=== PATIENT | female | born 1995 | race Caucasian/White ===

== ENCOUNTER 2019-09-06 18:09 | Inpatient (IN) | payer OTHER, SELFPAY ==
[2019-09-06] MEDS ORDERED: NA CHLORIDE 0.9% 1,000 ML ONE ×2 (18:45→22:02)
[2019-09-06 19:14] LABS: Absolute Lymphocytes (CBC) 1.9 K/uL (0.7-4.9); Basophils % 0.5 % (0-1.3); Hematocrit 28.5 % (36.0-45.0); Lymphocytes % 21.5 % (15.3-44.8); MPV 7.9 fL (7.6-11.3); RBC Red Blood Cell Count 3.36 M/uL (3.86-4.86)
[2019-09-06 19:26] LABS: Potassium 3.4 mmol/L (3.5-5.1)
[2019-09-06] MEDS ORDERED: METHYLERGONOVINE 0.2MG/ML AMP IM ONE (22:01)
[2019-09-07 01:57] LABS: Hematocrit 19.5 % (36.0-45.0)
--- NOTE | 2019-09-07 02:41 | EDPHYS ---
Physician Documentation [facility] Name: Jacqueline Parks Age: 24 yrs Sex: Female : 1995 Arrival Date: 09/06/2019 Time: 18:10 Bed 14 Private MD: AMAYA Physician Yayo Verduzco HPI: 09/05 18:36 This 24 yrs old Female presents to ER via Ambulatory with complaints of Vaginal pm1 Bleeding. 18:36 The patient presents with vaginal bleeding that is heavy, with clots. Onset: The pm1 symptoms/episode began/occurred 1 month(s) ago, and became worse today. Modifying factors: The symptoms are alleviated by nothing, the symptoms are aggravated by nothing. Associated signs and symptoms: Pertinent positives: Near syncope, Pertinent negatives: diarrhea, dysuria, fever, nausea, vomiting. Severity of symptoms: in the emergency department the symptoms are actually worse. The patient is sexually active. The patient has not experienced similar symptoms in the past. [facility]. 9 weeks per ultrasound. Took pill on 08/08 and has had light bleeding until she had heavy bleeding and clots today. +Nausea and dizziness. - chest pain or shortness of breath. 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 - Social history:: Smoking status: . ROS: 18:36 Positive for vaginal bleeding, Negative for urinary symptoms, vaginal discharge. pm1 18:36 Constitutional: Negative for fever, chills, and weight loss, Cardiovascular: Negative for chest pain, palpitations, and edema, Respiratory: Negative for shortness of breath, cough, wheezing, and pleuritic chest pain, Back: Negative for injury and pain, MS/Extremity: Negative for injury and deformity, Skin: Negative for injury, rash, and discoloration. 18:36 Abdomen/GI: Positive for nausea, abdominal cramps, of the suprapubic area, Negative for vomiting, diarrhea, constipation. 18:36 : Positive for vaginal bleeding, Negative for urinary symptoms, vaginal discharge. 18:36 Neuro: Positive for near syncope. Exam: 18:36 Constitutional: This is a well developed, well nourished patient who is awake, alert, pm1 and in no acute distress. Head/Face: Normocephalic, atraumatic. Chest/axilla: Normal chest wall appearance and motion. Nontender with no deformity. No lesions are appreciated. Cardiovascular: Regular rate and rhythm with a normal S1 and S2. No gallops, murmurs, or rubs. Normal PMI, no JVD. No pulse deficits. Respiratory: Lungs have equal breath sounds bilaterally, clear to auscultation and percussion. No rales, rhonchi or wheezes noted. No increased work of breathing, no retractions or nasal flaring. Abdomen/GI: Soft, non-tender, with normal bowel sounds. No distension or tympany. No guarding or rebound. No evidence of tenderness throughout. Back: No spinal tenderness. No costovertebral tenderness. Full range of motion. 18:36 Skin: Warm, dry with normal turgor. Normal color with no rashes, no lesions, and no evidence of cellulitis. MS/ Extremity: Pulses equal, no cyanosis. Neurovascular intact. Full, normal range of motion. 18:36 : Patient with moderate amount of blood present in the restroom with clots. Minimal active bleeding in ER bed. 18:36 Neuro: Exam negative for acute changes, Orientation: is normal, Mentation: is normal, Motor: is normal, moves all fours, Sensation: is normal, no obvious gross deficits. 21:35 : Pelvic Exam: External exam: is normal, Speculum exam: mild bleeding, blood clots in pm1 vaginal vault, tissue in cervix is seen, tissue in vagina is seen, [place] hearing aid specialist chaperoned. Vital Signs: 18:13 BP 110 / 82; Pulse 137; Resp 18; Temp 98.8(TE); Pulse Ox 99% on R/A; Weight 77.11 kg tw2 (R); Height 5 ft. 5 in. (165.10 cm) (R); Pain 9/10; 19:05 BP 108 / 58; Pulse 94; Resp 18; Pulse Ox 98% ; ll1 20:00 BP 106 / 59; Pulse 87; Resp 16; Pulse Ox 100% on R/A; jb4 21:00 BP 115 / 71; Pulse 87; Resp 16; Pulse Ox 100% on R/A; jb4 21:45 BP 103 / 73; Pulse 130; Resp 16; Pulse Ox 98% on R/A; jb4 22:45 BP 105 / 52; Pulse 81; Resp 16; Pulse Ox 100% on R/A; Pain 0/10; jb4 23:53 BP 100 / 56; Pulse 91; Resp 16; Pulse Ox 100% on R/A; jb4 09/06 00:45 BP 92 / 54; Pulse 118; Resp 16; Pulse Ox 100% on R/A; jb4 01:30 BP 104 / 56; Pulse 82; Resp 16; Pulse Ox 99% on R/A; jb4 02:45 BP 107 / 56; Pulse 79; Resp 16; Pulse Ox 97% on R/A; jb4 03:45 BP 101 / 54; Pulse 76; Resp 16; Pulse Ox 98% on R/A; jb4 04:45 BP 99 / 52; Pulse 81; Resp 16; Pulse Ox 97% on R/A; jb4 05:45 BP 101 / 49; Pulse 73; Resp 16; Pulse Ox 98% on R/A; jb4 06:20 jb4 09:15 BP 116 / 63; Pulse 87; Resp 17; Temp 98.5; Pulse Ox 99% ; Pain 0/10; jr10 09/05 18:13 Body Mass Index 28.29 (77.11 kg, 165.10 cm) tw2 09/05 18:13 earlier it felt like a 10/19 but i took 800 mg motrin about an hr ago. tw2 09/06 06:20 See transfusion flow sheet for further documentation. jb4 MDM: 09/05 18:21 Patient medically screened. pm1 09/06 02:15 Counseling: I had a detailed discussion with the patient and/or guardian regarding: the pm1 historical points, exam findings, and any diagnostic results supporting the discharge/admit diagnosis, lab results, radiology results, the need for further work-up and treatment in the hospital. 02:21 Physician consultation: Immanuel Whitaker MD regarding admission, patient's condition, and pm1 will see patient L\T\D floor. would like medications started, Wants 20 units of Pitocin in her IV fluids. 02:33 Data reviewed: vital signs. Data interpreted: Pulse oximetry: on room air is 99 %. pm1 Interpretation: normal. 09/05 18:26 Order name: Quantitative Hcg; Complete Time: 19:43 pm1 09/05 18:26 Order name: Abo/rh Typing pm1 09/05 18:26 Order name: Basic Metabolic Panel; Complete Time: 19:43 pm1 09/05 18:26 Order name: CBC with Diff; Complete Time: 19:20 pm1 09/05 21:35 Order name: Misc. Lab Test pm1 09/05 21:02 Order name: US Transvaginal Ob pm1 09/05 21:36 Order name: ABO/RH no charge; Complete Time: 22:43 EDMS 09/06 00:57 Order name: Hematocrit; Complete Time: 02:14 pm1 09/06 00:57 Order name: Hemoglobin; Complete Time: 02:14 pm1 09/06 05:07 Order name: Antibody Screen EDOH 09/05 18:26 Order name: IV Saline Lock; Complete Time: 18:41 pm1 09/05 18:26 Order name: Labs collected and sent; Complete Time: 18:40 pm1 09/05 18:26 Order name: NPO; Complete Time: 18:41 pm09/05 21:01 Order name: Pelvic Exam Setup; Complete Time: 21:09 pm1 09/06 01:58 Order name: Transfuse; Complete Time: 06:52 pm1 Administered Medications: 09/05 18:40 Drug: NS 0.9% 1000 ml Route: IV; Rate: 1000 ml; Site: right antecubital; ll1 19:20 Follow up: Response: No adverse reaction; IV Status: Completed infusion; IV Intake: jb4 1000ml 21:55 Drug: NS 0.9% 1000 ml {Note: Administered by SUSAN Bradley} Route: IV; Rate: 1000 ml; jb4 Site: right antecubital; 23:00 Follow up: Response: No adverse reaction; IV Status: Completed infusion; IV Intake: jb4 1000ml 21:58 Drug: METHERgine 0.2 mg Route: IM; Site: left gluteus; jb4 23:00 Follow up: Response: No adverse reaction; Marked relief of symptoms jb4 22:31 Not Given (Patient Refused): Zofran (Ondansetron) 4 mg IVP once; over 2 minutes jb4 09/06 03:18 Drug: Pitocin 20 units Route: IV; Rate: calculated rate; Site: right antecubital; jb4 09:16 Follow up: Response: No adverse reaction; IV Status: Infusion continued upon admission jr10 06:05 Drug: Benadryl 12.5 mg Route: IVP; Site: left antecubital; jb4 06:55 Follow up: Response: No adverse reaction jb4 06:05 Drug: Tylenol 650 mg Route: PO; jb4 06:55 Follow up: Response: No adverse reaction jb4 06:05 Drug: Solu-CORTEF 50 mg Route: IVP; Site: left antecubital; jb4 06:55 Follow up: Response: No adverse reaction jb4 Disposition: 09/07/19 02:40 Hospitalization ordered by Immanuel Whitaker for Observation. Preliminary diagnosis are Complete or unspecified spontaneous with other complications - anemia, Anemia, unspecified. - [facility]. - Status is Observation. jr10 - Condition is Stable. - Problem is new. - Symptoms have improved. Addendum: 09/09/2019 11:39 Co-signature as Attending Physician, Yayo Verduzco MD I agree with the assessment and c melara plan of care. Signatures: Dispatcher [employer] [facility] Yayo Verduzco MD MD cha Ballard, Brenda, RN RN bb Claus Reynoso, WOOD ROOM SUPERVISOR WOOD ROOM SUPERVISOR pm1 Flavia Benitez RN RN tw2 David Chen RN RN jb4 Trevon Cherry RN RN ll1 Minerva Washington, SUSAN RN jr10 Corrections: (The following items were deleted from the chart) 09/05 23:38 21:35 Miscellaneous Test Lab ordered. [facility] 09/06 02:50 02:40 Hospitalization Ordered by Immanuel Whitaker MD for Observation. Preliminary bb diagnosis is Complete or unspecified spontaneous with other complications - anemiaAnemia, unspecified. Bed requested for [facility]. Status is Observation. Condition is Stable. Problem is new. Symptoms have improved. pm1 09:18 02:50 09/07/2019 02:40 Hospitalization Ordered by Immanuel Whitaker MD for Observation. jr10 Preliminary diagnosis is Complete or unspecified spontaneous with other complications - anemiaAnemia, unspecified. Bed requested for [facility]. Status is Observation. Condition is Stable. Problem is new. Symptoms have improved. bb
--- NOTE | 2019-09-07 02:41 | ER ---
Nurse's Notes [facility] Name: Jacqueline Parks Age: 24 yrs Sex: Female : 1995 Arrival Date: 09/06/2019 Time: 18:10 Bed 14 Private MD: Diagnosis: Anemia, unspecified;Complete or unspecified spontaneous with other complications-anemia Presentation: 09/05 18:13 Chief complaint: Patient states: i had a medical on August 08, i am still tw2 experiencing bleeding and now it is extreme bleeding, it is just gushing out of me, it was heavy the first night after August 08, i bled the whole time, but today at about 3pm it started with this extreme bleeding, i have soaked 5 or 6 pads since 3pm, and this pad i just put on was 10 minutes ago and i am bleeding through it everywhere. Chief complaint: Patient states: i am also feeling a little lightheaded and shaky. Coronavirus screen: Patient reports a cough. Patient denies shortness of breath or difficulty breathing. Patient denies measured and/or subjective temperature greater than 100.4F prior to today's visit. Patient denies travel on a cruise ship or to a country the [facility] currently lists as an affected area. Patient denies contact with known and/or suspected case of COVID-19. Ebola Screen: Patient denies travel to an Ebola-affected area in the 21 days before illness onset. Initial Sepsis Screen: Does the patient meet any 2 criteria? HR > 90 bpm. No. Patient's initial sepsis screen is negative. Does the patient have a suspected source of infection? No. Patient's initial sepsis screen is negative. Risk Assessment: Do you want to hurt yourself or someone else? Patient reports no desire to harm self or others. Onset of symptoms was September 06, 2019. 18:13 Method Of Arrival: Ambulatory tw2 18:13 Acuity: DEMOND 2 ss 18:19 Chief complaint: Patient states: pts states last periods was in May, and i was about tw2 9 wks , when they gave me the oral medication to have the . Triage Assessment: 18:18 General: Appears uncomfortable, Behavior is calm, cooperative, appropriate for age, tw2 crying. Pain: Complains of pain in pelvis. : Reports cramping, vaginal bleeding that is bright red, heavy flow. 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 - Social history:: Smoking status: . Screenin:24 Abuse screen: Denies threats or abuse. Nutritional screening: No deficits noted. ll1 Tuberculosis screening: No symptoms or risk factors identified. Fall Risk IV access (20 points). Gait- Weak (10 pts.). Total Ashraf Fall Scale indicates Low Risk Score (25-44 pts). Fall prevention measures have been instituted. Side Rails Up X 2 Placed close to Nursing Station Frequent Obs/Assesments occuring As available Patient and Family Educated on Fall Prevention Program and strategies. Assessment: 18:23 General: Appears in no apparent distress. Behavior is calm, cooperative. Pain: ll1 Complains of pain in pelvis. Neuro: No deficits noted. Cardiovascular: No deficits noted. GI: No deficits noted. : cristobal blood, Reports vaginal bleeding that is bright red, heavy flow. 19:00 Reassessment: Patient appears in no apparent distress at this time. Patient and/or jb4 family updated on plan of care and expected duration. Pain level reassessed. Patient is alert, oriented x 3, equal unlabored respirations, skin warm/dry/pink. Patient states feeling better. 20:00 Reassessment: Patient appears in no apparent distress at this time. Patient and/or jb4 family updated on plan of care and expected duration. Pain level reassessed. Patient is alert, oriented x 3, equal unlabored respirations, skin warm/dry/pink. 21:00 Reassessment: Patient appears in no apparent distress at this time. Patient and/or jb4 family updated on plan of care and expected duration. Pain level reassessed. Patient is alert, oriented x 3, equal unlabored respirations, skin warm/dry/pink. 21:45 Reassessment: PT reports feeling like she is going to pass out. Pt is pale and clammy, jb4 heart rate is 130 and weak. Sudden increase in vaginal bleeding noted, pt fell unconscious. Provider called to the bedside via staff assist. Pt coughing, turned to her right side, vomited once. Pt is now conscious and A\\T\\O x4. 22:19 Reassessment: Patient appears in no apparent distress at this time. Patient and/or jb4 family updated on plan of care and expected duration. Pain level reassessed. Patient is alert, oriented x 3, equal unlabored respirations, skin warm/dry/pink. PT reports feeling better, is being assisted with bedbath. 22:45 Reassessment: PT is resting in bed comfortably talking on the phone with her friend. jb4 Denies nausea, or feeling as though she is going to pass out. Reports feeling as though the bleeding has greatly decreased. Female bus info consultant is present, pt is still bleeding, noticeably less than before. Pt skin is pink, warm, and dry. Pulse has returned to within normal limits. 23:53 Reassessment: PT is still bleeding slightly. PT has had 3 new dime sized drops of blood jb4 since last being checked. Pt reports feeling better. Asked if she felt able to ambulate, reports being uncertain. Sat up in bed to 90 degrees, reports feeling "off" but not dizzy. Heart rate increased to 95 BPM. Pt is other vides sitting comfortably in bed playing on her phone. Provider notified. 09/06 00:50 Reassessment: Patient and/or family updated on plan of care and expected duration. Pain jb4 level reassessed. Patient is alert, oriented x 3, equal unlabored respirations, skin warm/dry/pink. Attempted to stand patient and ambulate. Pt monique to standing position slowly. Reported being dizzy, began to stumble and got back in bed. Pt's heart rate increased to 168 BPM, heart rate decreased to 110 once back in bed. Pt reports feeling much better and no longer feeling faint after laying back down. Provider notified, see MAR for orders. 02:00 Reassessment: Patient and/or family updated on plan of care and expected duration. Pain jb4 level reassessed. Patient is alert, oriented x 3, equal unlabored respirations, skin warm/dry/pink. PT is resting comfortably in bed. No s/s of pain or distress noted. 03:00 Reassessment: No changes from previously documented assessment. Patient and/or family jb4 updated on plan of care and expected duration. Pain level reassessed. Patient is alert, oriented x 3, equal unlabored respirations, skin warm/dry/pink. 04:00 Reassessment: Pt is resting in bed with eyes closed, respirations are even and jb4 unlabored with no s/s of pain or distress noted. IV fluids continue to infuse with ease. 05:00 Reassessment: No changes from previously documented assessment. Patient and/or family jb4 updated on plan of care and expected duration. Pain level reassessed. 06:00 Reassessment: Patient and/or family updated on plan of care and expected duration. Pain jb4 level reassessed. Patient is alert, oriented x 3, equal unlabored respirations, skin warm/dry/pink. PT is awake an alert. Sitting upright in bed. Explained that the transfusion is about to be started. Pt verbalized understanding. Denies anxiety, questions, or concerns. Breathe sounds are clear bilaterally. 06:20 Reassessment: Blood transfusion started. jb4 07:30 Reassessment: Patient appears in no apparent distress at this time. Patient and/or jr10 family updated on plan of care and expected duration. Pain level reassessed. Patient is alert, oriented x 3, equal unlabored respirations, skin warm/dry/pink. Patient states feeling better. Patient states symptoms have improved. blood continuing to transfuse at this time. Pt remains without s/s of suspected transfusion reaction. See paper documentation for vitals and additional blood transfusion documentation. Vital Signs: 09/05 18:13 BP 110 / 82; Pulse 137; Resp 18; Temp 98.8(TE); Pulse Ox 99% on R/A; Weight 77.11 kg tw2 (R); Height 5 ft. 5 in. (165.10 cm) (R); Pain 9/10; 19:05 BP 108 / 58; Pulse 94; Resp 18; Pulse Ox 98% ; ll1 20:00 BP 106 / 59; Pulse 87; Resp 16; Pulse Ox 100% on R/A; jb4 21:00 BP 115 / 71; Pulse 87; Resp 16; Pulse Ox 100% on R/A; jb4 21:45 BP 103 / 73; Pulse 130; Resp 16; Pulse Ox 98% on R/A; jb4 22:45 BP 105 / 52; Pulse 81; Resp 16; Pulse Ox 100% on R/A; Pain 0/10; jb4 23:53 BP 100 / 56; Pulse 91; Resp 16; Pulse Ox 100% on R/A; jb4 09/06 00:45 BP 92 / 54; Pulse 118; Resp 16; Pulse Ox 100% on R/A; jb4 01:30 BP 104 / 56; Pulse 82; Resp 16; Pulse Ox 99% on R/A; jb4 02:45 BP 107 / 56; Pulse 79; Resp 16; Pulse Ox 97% on R/A; jb4 03:45 BP 101 / 54; Pulse 76; Resp 16; Pulse Ox 98% on R/A; jb4 04:45 BP 99 / 52; Pulse 81; Resp 16; Pulse Ox 97% on R/A; jb4 05:45 BP 101 / 49; Pulse 73; Resp 16; Pulse Ox 98% on R/A; jb4 06:20 jb4 09:15 BP 116 / 63; Pulse 87; Resp 17; Temp 98.5; Pulse Ox 99% ; Pain 0/10; jr10 09/05 18:13 Body Mass Index 28.29 (77.11 kg, 165.10 cm) tw2 09/05 18:13 earlier it felt like a 10/19 but i took 800 mg motrin about an hr ago. tw2 09/06 06:20 See transfusion flow sheet for further documentation. 4 ED Course: 09/05 18:10 Patient arrived in ED. ag5 18:17 Triage completed. tw2 18:17 Arm band placed on. tw2 18:21 Claus Reynoso NP is PHCP. pm1 18:21 Yayo Verduzco MD is Attending Physician. pm1 18:23 Trevon Cherry, RN is Primary Nurse. ll1 18:24 Patient has correct armband on for positive identification. Bed in low position. Call ll1 light in reach. Side rails up X 1. 18:42 Inserted saline lock: 18 gauge in right antecubital area, using aseptic technique. ll1 Blood collected. 19:13 Primary Nurse role handed off by Trevon Cherry, RN jb4 19:13 David Chen, RN is Primary Nurse. 4 21:45 Assist provider with pelvic exam: Set up pelvic tray. Performed by Claus Reynoso NP mw2 Specimens sent to lab. 22:50 US Transvaginal Ob In Process Unspecified. EDMS 09/06 02:38 Immanuel Whitaker MD is Hospitalizing Provider. pm1 07:12 Primary Nurse role handed off by David Chen, SUSAN jr10 07:12 Minerva Washington, SUSAN is Primary Nurse. jr10 09:17 Patient admitted, IV remains in place. No redness/swelling at site. Pressure dressing jr10 applied. Administered Medications: 09/05 18:40 Drug: NS 0.9% 1000 ml Route: IV; Rate: 1000 ml; Site: right antecubital; ll1 19:20 Follow up: Response: No adverse reaction; IV Status: Completed infusion; IV Intake: jb4 1000ml 21:55 Drug: NS 0.9% 1000 ml {Note: Administered by SUSAN Bradley .} Route: IV; Rate: 1000 ml; jb4 Site: right antecubital; 23:00 Follow up: Response: No adverse reaction; IV Status: Completed infusion; IV Intake: jb4 1000ml 21:58 Drug: METHERgine 0.2 mg Route: IM; Site: left gluteus; jb4 23:00 Follow up: Response: No adverse reaction; Marked relief of symptoms jb4 22:31 Not Given (Patient Refused): Zofran (Ondansetron) 4 mg IVP once; over 2 minutes jb4 09/06 03:18 Drug: Pitocin 20 units Route: IV; Rate: calculated rate; Site: right antecubital; jb4 09:16 Follow up: Response: No adverse reaction; IV Status: Infusion continued upon admission jr10 06:05 Drug: Benadryl 12.5 mg Route: IVP; Site: left antecubital; jb4 06:55 Follow up: Response: No adverse reaction jb4 06:05 Drug: Tylenol 650 mg Route: PO; jb4 06:55 Follow up: Response: No adverse reaction jb4 06:05 Drug: Solu-CORTEF 50 mg Route: IVP; Site: left antecubital; jb4 06:55 Follow up: Response: No adverse reaction jb4 Intake: 09/05 19:20 IV: 1000ml; Total: 1000ml. jb4 23:00 IV: 1000ml; Total: 2000ml. jb4 Outcome: 09/06 02:40 Decision to Hospitalize by Provider. pm1 09:16 Admitted to L \\T\\ D, accompanied by nurse, via wheelchair, room 270. jr10 09:16 Condition: improved 09:16 Instructed on the need for admit. 09:18 Patient left the ED. jr10 Signatures: Dispatcher [employer] EDMS Randa Norman, RN RN ss Claus Reynoso, BAG MACHINE SET UP OPERATOR BAG MACHINE SET UP OPERATOR pm1 Flavia Vides RN RN tw2 David Chen RN RN jb4 Warren Lima mw2 Elma Brown ag5 Trevon Cherry RN RN ll1 Minerva Washington RN RN jr10 Corrections: (The following items were deleted from the chart) 09/05 19:03 18:13 Acuity: DEMOND 3 tw2 ss 23:03 23:00 Reassessment: PT is resting in bed comfortably talking on the phone with her jb4 friend. Denies nausea, or feeling as though she is going to pass out. Reports feeling as though the bleeding has greatly decreased. Female bus info consultant is present, pt is still bleeding, noticeably less than before. Pt skin is pink, warm, and dry. Pulse has returned to within normal limits. 4 09/06 07:19 09/05 23:53 Reassessment: PT is still bleeding slightly. PT has had 3 new dime sized jb4 drops of blood since last being checked. Pt reports feeling better. Asked if she felt able to ambulate, reports being uncertain. Sat up in bed to 90%, reports feeling "off" but not dizzy. Heart rate increased to 95 BPM. Pt is other vides sitting comfortably in bed playing on her phone. Provider notified. 4 09/06 09:17 09:16 Admitted to L \\T\\ D, accompanied by nurse, via wheelchair, Report called to marilynn German RN jr10
[2019-09-07] MEDS ORDERED: HYDROCORTISONE SUC 100 MG INJ ONE (02:55)
[2019-09-07] MEDS ORDERED: ACETAMINOPHEN 325 MG TABLET ONE (02:56)
[2019-09-07] MEDS ORDERED: NA CHLORIDE 0.9% 250 ML ONE (02:56)
[2019-09-07] MEDS ORDERED: DIPHENHYDRAMINE 50 MG/ML VIAL ONE (02:56)
[2019-09-07] MEDS ORDERED: OXYTOCIN 10 UNIT/ML ML IV ONE ×2 (02:56→03:16)
[2019-09-07] MEDS ORDERED: NA CHLORIDE 0.9% 0 ML ONE (02:56)
[2019-09-07] MEDS ORDERED: Ringers Lactate 1,000 ML IV ONE (03:16)
[2019-09-07] MEDS ORDERED: miSOPROStoL 100 MCG TAB ONE (04:45)
[2019-09-07] MEDS: miSOPROStoL 100 MCG TAB PO SCH ×3 (09:35→17:25)
[2019-09-07 09:43] VITALS: O2SAT 99
[2019-09-07] MEDS ORDERED: NA CHLORIDE 0.9% 250 ML IV SCH (09:53)
[2019-09-07] MEDS ORDERED: D5LR 1,000 ML with OXYTOCIN 20 UNIT IV SCH ×2 (09:53)
[2019-09-07] MEDS ORDERED: OXYTOCIN/LR 20 UNIT/1,000 ML BAG IV SCH (09:53)
--- NOTE | 2019-09-07 09:53 | SS ---
History Of Present Illness: A 24-year-old female with a history of medical attempt at term ination. She said she took 2 rounds of mifepristone and Cytotec and it obviously did not work. Pres ented to our emergency room with heavy bleeding. Hemoglobin on admission was about 9.5. It went jen n to 6.8. The patient became diaphoretic and dizzy. The emergency room doctor cleared out. What pr obably was retained POC from the cervical os. Gave her Methergine IM, IV drip Pitocin, and the bleed ing essentially stopped. The patient is on the first unit of blood. Doing much better. Says she fe els fine. Rh positive. No signs of any type of infection. I have seen the patient. Physical Examination: Basically normal from ER record. Allergies: SHE HAS NO ALLERGIES. THE PATIENT HAS BEEN HERE SINCE 6 P.M. YESTERDAY AND SAYS SHE WANTS TO GO HOME SOON POSSIBLE. THE PLAN WAS TO PUT HER ON THE SECOND FLOOR AFTER THE SECOND UNIT OF BLOOD AND LET HER AMBULATE AND L ET HER GO HOME LATER THIS EVENING. THE PATIENT IS PRETTY CONSISTENT THOUGH SHE WISHES TO GO HOME SOON POSSIBLE. WE WILL TALK TO THE ER PEOPLE, AND IF SHE GETS HER SECOND UNIT OF BLOOD, THEN CAN AMBULATE IN THE RUIZ WITHOUT PROBLEMS, WHICH I THINK SHE WILL BE ABLE TO DO. THEN SHE PROBABLY CAN G O HOME STRAIGHT FROM HERE. WE WILL CALL IN TO [facility] FOR DOXYCYCLINE 100 MG TO BE TAKEN TWICE A DAY FOR PROPHYLAXIS AGAINST INFECTION. CYTOTEC 100 MCG TO BE TAKEN EVERY 4 HOURS FOR FURTHER UTERINE CLAMPI NG, SO NO SIGNIFICANT BLEEDING WILL OCCUR. SHE HAS BEEN ON IN THE PAST AND WISHES TO STAY ON . WE WILL GIVE HER 3 TO USE OVER THE NEXT 3 MONTHS AND THAT SHOULD HELP STO P BLEEDING AND GIVE HER CONTROL UNTIL SHE CAN GET BACK TO HER [employer]. FULL DISCUSSION WITH THE PATIENT. SHE IS QUITE ALERT, INTELLIGENT, AND I THINK SHE WILL BE ABLE TO FOLLOW THESE INSTRUCTIONS. ANGELINA/JOSE D Voice ID: [id number] Report ID: [id number]
[2019-09-07] MEDS ORDERED: NA CHLORIDE 0.9% 500 ML ONE (09:55)
--- NOTE | 2019-09-07 10:02 | RAD REPORT ---
EXAM DESCRIPTION: US , Transvaginal CLINICAL HISTORY: The patient is 24 years old and is Female; VAGINAL BLEEDING TECHNIQUE: Real-time transvaginal obstetrical ultrasound of the maternal pelvis and a first trimeste r with image documentation. Transvaginal imaging was used for better evaluation of the fe tus and adnexa. COMPARISON: No relevant prior studies available. FINDINGS: GESTATION: There is no evidence of an intrauterine . UTERUS/CERVIX: Heterogeneous uterine fibroid is present. The endometrium is thickened and hete rogeneous which may be secondary to blood products. OVARIES: The right ovary is not visualized secondary to bowel gas. The left ovary is not visuali zed secondary to bowel gas. FREE FLUID: See above. OTHER FINDINGS: No findings to suggest retained products of conception. IMPRESSION: 1. No evidence of an intrauterine . No definite findings to suggest retained products of conception. Recommend continued follow-up with serial hCG and ultrasound. 2. The endometrium is thickened and heterogeneous which may be secondary to blood products. Electronically signed by: Veronique John MD 09/07/2019 2:33 AM CDT Due to temporary technical issues with the PACS/Fluency reporting system, reports are being signed by the in house radiologist without review as a courtesy to ensure prompt reporting. The interpreting r adiologist is fully responsible for the content of the report.
[2019-09-07 11:01] VITALS: BMI 28.3
[2019-09-07 16:00] VITALS: BP 125/60; TEMP 99
[2019-09-07 16:39] LABS: Hematocrit 24.7 % (36.0-45.0)
== END 2019-09-07 19:00 | disposition home or self-care (01) | DRG 779 ==
LOC: ER 18:09 → ERHOLD 09-07 03:27 → OBSVTOIN 09-07 07:51 → 2ND-WC 09-07 08:46
PROVIDERS: ADMIT Specialist; ATTEND Specialist
PROC: 30233N1 Transfusion of Nonautologous Red Blood Cells into Peripheral Vein, Percutaneous Approach (ICD-10-PCS; principal; 2019-09-07)
DX: O03.9 Complete or unspecified spontaneous abortion without complication (principal)
CPT/HCPCS: 36415; 76817; 80048; 84702; 85014; 85018; 85025; 86850; 86900; 86901; 88305; 96361; 96365; 96366; 96372; 96375; 99285; G0378; J1200; J1720; J2210; J2590; J7030; J7040; J7050; J7120; P9016